=== PATIENT | female | born 1975 | race Caucasian/White ===

== ENCOUNTER 2017-11-10 05:57 | Emergency (ER) | payer SELFPAY ==
[2017-11-10] MEDS ORDERED: Sodium Chloride 0.9% 10 ML Syringe FLUSH PRN (06:26)
[2017-11-10] MEDS ORDERED: Ondansetron 4 MG/2 ML SDV IVPUSH ONE (06:26)
[2017-11-10] MEDS ORDERED: Ketorolac 30 MG/ML SDV IVPUSH ONE (06:26)
[2017-11-10] MEDS ORDERED: methylPREDNISolone Sodium Succinate 125 MG/2 ML SDV IVPUSH ONE (06:26)
[2017-11-10] MEDS ORDERED: Sodium Chloride 0.9% 2.5 ML Syringe FLUSH PRN (06:26)
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
== END 2017-11-10 07:05 | disposition home or self-care (01) ==
LOC: MW.ED 05:57
DX: R51 Headache (principal)
CPT/HCPCS: 96374; 96375; 99284; J1885; J2405; J2930